=== PATIENT | male | born 1990 | race Caucasian/White ===

== ENCOUNTER 2021-09-03 08:43 | Outpatient (REF) | payer OTHER, SELFPAY ==
[2021-09-03 11:10] LABS: Appearance Urine CLEAR; Color Urine STRAW; Glucose Urine UA NEG (NEG); Leukocyte Esterase Urine NEG (NEG); Nitrite Urine NEG (NEG); Specific Gravity - Urine 1.015 (1.005-1.025); Urine Blood NEG (NEG); Urine Ketones 5 MG/DL (NEG); Urine Protein NEG (NEG-TRACE)
[2021-09-03 12:01] LABS: Alanine Aminotransferase 24 U/L (0-40); Albumin Level 4.3 g/dL (3.5-5.0); Alkaline Phosphatase 46 U/L (39-117); Anion Gap 11 (12-20); Aspartate Amino Transferase 23 U/L (5-37); Bilirubin Total 0.6 mg/dL (0.0-1.0); Blood Urea Nitrogen 12 mg/dL (9-16); Calcium 9.5 mg/dL (8.4-10.2); Carbon Dioxide 29 mmol/L (22-29); Chloride 105 mmol/L (96-108); Cholesterol 233 mg/dL; Estimated Glomerular Filt Rate > 60; Glucose Fasting 98 mg/dL (60-99); HDL Cholesterol 70 mg/dL; LDL Cholesterol Calculated 148 mg/dl; Potassium 4.6 mmol/L (3.3-5.1); Sodium 140 mmol/L (135-145); TSH reflex Free T4 3.06 uIU/mL (0.32-4.0); Total Protein 7.4 g/dL (6.5-8.0); Triglycerides 75 mg/dL
== END 2021-09-03 08:44 | disposition home or self-care (01) ==
LOC: HO.HMGCLDS 08:43
PROVIDERS: PCP Nurse Practitioner Family; Visit Provider Nurse Practitioner Family
DX: Z00.00 Encounter for general adult medical examination without abnormal findings (principal)
CPT/HCPCS: 36415; 80053; 80061; 81003; 84443

== ENCOUNTER → 2021-12-02 13:48 | Outpatient (BNVA) | payer OTHER, SELFPAY | PROVIDERS: PCP Nurse Practitioner Family; Visit Provider Nurse Practitioner Family | DX: Z13.89 Encounter for screening for other disorder (principal) ==

== ENCOUNTER 2023-07-28 15:49 | Outpatient (AMB) | payer OTHER, SELFPAY ==
[2023-07-28 16:12] VITALS: BP 126/70; PULSE 78; TEMP 36.9; O2SAT 98; BMI 37.4
--- NOTE | 2023-07-28 16:12 | AM.OFFWIN_ITS ---
Intake Vital Signs 07/28/23 16:12 Height 6 ft 3 in Weight 299 lb BMI 37.4 BP 126/70 Blood Pressure Location Rt brachial Position Sitting Pulse 78 Pulse Source Pulse Oximeter Temp 98.5 F Temp Source Temporal Artery Scan Pulse Oximetry (%) 98 Oxygen Delivery Method Room Air Intake Visit Reasons: EP RT hand tingling nerve pain Intake Note: pt is here today for hand tingling nerve pain started 2 weeks ago Patient Tobacco Use Status: Former Tobacco user Allergies No Known Allergies [No Known Allergies*] Allergy (Verified 07/28/23 16:13) Do you need a note to return to daycare/school/sports/work: No HPI HPI Comments History of Present Illness Details This is a 33-year-old male with a 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 Patient denies any injury or trauma preceding the onset of his symptoms and he denies having any neck pain or neck trauma. Patient has taken ibuprofen with minimal relief of his discomfort. Patient is requesting a referral to a hand specialist. [facility] Surgical History Hx of appendectomy Social History Housing: House Alcohol intake: current Alcohol intake frequency: holidays/special occasions only Patient Tobacco Use Status: Former Tobacco user e-Cigarette/Vaping Use: Never Used Second Hand Smoke Exposure: No Current occupational status: employed Cognitive needs: No Hearing needs: No Vision needs: No Review of Systems Const All systems reviewed & are unremarkable except as noted in HPI and below Denies chills and Denies fever(s) Musc Reports no additional complaints and Reports other (Right thumb pain; numbness/tingling) Skin/Breast Reports system reviewed and no additional complaints, except as documented Psych Reports no additional complaints Physical Exam Vital Signs: Last Vital Signs Temp 98.5 F 07/28/23 16:12 Pulse 78 07/28/23 16:12 BP 126/70 07/28/23 16:12 Pulse Ox 98 07/28/23 16:12 Oxygen Delivery Method Room Air 07/28/23 16:12 BMI result Body Mass Index 37.4 Const General: cooperative, healthy appearing, comfortable, no acute distress and well developed Nutritional Appearance: average body habitus Orientation/consciousness: patient oriented x3 Limitations: no limitations Neck Neck: Yes full ROM, Yes no meningeal signs, No anterior neck swelling and Yes other (no paraspinous tenderness to palpation of the cervical spine musculature) Lymphatic: no lymphadenopathy noted Skin General skin exam: no rashes or lesions noted (no cutaneous abnormalities right hand, right thumb) Neuro Other: sensation intact right thumb as compared to left thumb; no pain to palpation, full ROM right thumb intact General: patient oriented x3, Normal light touch and pain sensation (right thumb) and no meningeal signs Cognition (Neuro): normal cognition Extrem Right upper extremity: Extremity exam: right hand Details: normal to inspection, normal capillary refill, neuromotor exam normal, neurosensory exam abnormal and tendon exam normal; no tenderness, ROM of fingers normal, no unusual warmth and no swelling Psych Appearance: grossly normal Mental Status: mental status grossly normal Insight: Good insight present (Psych) Judgement: Good judgement present (Psych) Assessment & Plan Assessment & Plan (1) Neuropathy: Comment: R. thumb; other digits of right hand not affected. Code(s): G62.9 - Polyneuropathy, unspecified Plan: Referral placed to hand specialist at [facility]. Coding Level of Care Code Est Pt Level 3 (79497) Diagnoses Neuropathy G62.9 Time Spent (min) 25
== END 2023-07-28 17:03 | disposition home or self-care (01) ==
PROVIDERS: PCP Nurse Practitioner Family; Visit Provider Physician Assistant
DX: G62.9 Polyneuropathy, unspecified (principal)
CPT/HCPCS: 99213

== ENCOUNTER 2023-08-05 08:36 | Outpatient (AMB) | payer OTHER, SELFPAY ==
--- NOTE | 2023-08-05 08:38 | MHC.OFFVIS ---
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 States its started about 1 month ago. States currently its comes and goes. States he is wearing a brace at night and helps. NO EMG done. 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 He states he has intermittent pain, numbness and tingling in his right hand. He also experiences difficulty with gripping and twisting motions and reports having pain with holding water bottles. He denies any crunching or clicking in his wrist. He uses a brace at night which provides him relief. He has tried ibuprofen in the past but discontinued taking them. 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 Cognitive needs: No Hearing needs: No Vision needs: No Review of Systems Const All systems reviewed & are unremarkable except as noted in HPI and below Physical Exam Vital Signs: BMI result Body Mass Index 37.4 Const General: cooperative, healthy appearing, comfortable, no acute distress, well developed and alert Orientation/consciousness: patient oriented x3 HEENT Head: Yes normal to inspection, Yes normocephalic and Yes atraumatic Eyes General: appearance normal, both eyes and all related structures Resp Effort & Inspection: normal respiratory effort and able to speak in complete sentences Cardio Rate: regular rate Peripheral pulses: Peripheral pulses 2+ throughout GI Palpation (GI): Soft to palpation Skin Lesions: no lesions Rashes: no rashes Neuro General: patient oriented x3 Extrem Other: Right wrist: Without deformity. No swelling. Mild tenderness over the radial styloid. Negative Elliott?s. Negative Tinel?s. No pain with CMC grind. He is able to make a full fist and fully extend all digits. NVI. Assessment & Plan Assessment & Plan (1) Neuropathy: Comment: R. thumb; other digits of right hand not affected. Code(s): G62.9 - Polyneuropathy, unspecified (2) De Quervain's tenosynovitis, right: Code(s): M65.4 - Radial styloid tenosynovitis [de Quervain] Plan He was fit for a Velcro thumb spica brace which he will wear at night and with strenuous activities. An EMG nerve conduction study has been ordered to evaluate the etiology of his nerve symptoms. He was also given a prescription of naproxen 500 mg which he will take twice a day for the next 2 weeks. he will see me back once the EMG study is complete. Orders: Orders NE electromyogram (EMG) Today R20.0 - Anesthesia of skin, R20.2 - Paresthesia of skin NE nerve conduction velocity Today R20.0 - Anesthesia of skin, R20.2 - Paresthesia of skin Medications: New naproxen 500 mg PO BID 60 tabs 3RF 30 days S93.409A - Sprain of unspecified ligament of unspecified ankle, initial encounter Patient Instructions: Scribed for Dameon Noriega PA-C, by Ajit Wilcox behavioral medical director, on 08/05/2023 at 8:30 AM EST. IDameon PA-C, have personally reviewed and agree with the information entered by the scribe. Coding Level of Care Code New Pt Level 3 (63952) Diagnoses Neuropathy G62.9 De Quervain's tenosynovitis, right M65.4
[2023-08-05 08:41] VITALS: BMI 37.4
== END 2023-08-05 08:59 | disposition home or self-care (01) ==
PROVIDERS: PCP Nurse Practitioner Family; Visit Provider Physician Assistant
DX: M65.4 Radial styloid tenosynovitis [de Quervain] (principal)
CPT/HCPCS: 99203

== ENCOUNTER → 2023-08-05 08:36 | Outpatient (BNVA) | payer OTHER, SELFPAY | PROVIDERS: PCP Nurse Practitioner Family; Visit Provider Physician Assistant ==

== ENCOUNTER 2023-09-08 07:30 | Outpatient (AMB) | payer OTHER, SELFPAY ==
--- NOTE | 2023-09-08 07:39 | A.OFFPC_ITS ---
Vital Signs 09/08/23 07:41 Height 6 ft 3 in Weight 299 lb BMI 37.4 BP 114/70 Blood Pressure Location Rt brachial Position Sitting Pulse 65 Pulse Source Pulse Oximeter Pulse Oximetry (%) 98 Oxygen Delivery Method Room Air Intake Visit Reasons: Annual PE Intake Note: Patient here for physical exam. Has not had labs done. Allergies No Known Allergies [No Known Allergies*] Allergy (Verified 09/08/23 07:42) Medication List - Last Reconciled 09/08/23 by RAVINDER Truong calcium polycarbophil (Fiber (calcium polycarbophil)) 1,250 mg PO DAILY cholecalciferol (vitamin D3) 50 mcg PO DAILY magnesium oxide 400 mg PO DAILY melatonin mg PO methylphenidate HCl 10 mg PO BID multivitamin 1 tab PO DAILY naproxen 500 mg PO BID 30 days Tobacco use date assessed: 09/08/23 Dental Screening Dental Screen Date: 09/08/23 Did you have a dental visit in the last 12 months?: Yes Did you have a dental problem in the last 6 months where you did not have access to dental care?: No Was dental information given to patient?: Patient has dentist HPI Annual PE HPI Details Pt is here for a PE. Will order labs. 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 1. Little interest or pleasure in doing things: not at all 2. Feeling down, depressed, or hopeless: not at all 3. Trouble falling or staying asleep, or sleeping too much: more than half the days 4. Feeling tired or having little energy: not at all 5. Poor appetite or overeating: not at all 6. Feeling bad about yourself - or that you are a failure or have let yourself or your family down: not at all 7. Trouble concentrating on things, such as reading the newspaper or watching television: not at all 8. Moving or speaking so slowly that other people could have noticed. Or the opposite - being so fidgety or restless that you have been moving around a lot more than usual: not at all 9. Thoughts that you would be better off or of hurting yourself in some way: not at all Total score: 2 Depression Screening Interpretation: Negative Depression Screening Done: Yes 30336 - PHQ-9 Billing: Yes Source: Developed by Drs. John Hobbs, Anamika Ravi, Raymundo Miramontes and colleagues, with an educational mohit from [employer]. Thrive Questionnaire Date Thrive assessed: 09/08/23 I am a: Patient What is your living situation today?: I have a steady place to live Within the past 12 months, did the food you bought not last and you didn't have the money to get more?: Never true Within the past 12 months, did you worry whether your food would run out before you got money to buy more?: Never true Do you have trouble paying for medicines?: No Do you have trouble getting transportation to medical appointments?: No Do you have trouble paying your heating and electricity bill?: No Do you have trouble taking care of your child, family member or friend?: No Do you have trouble with day-to-day activities such as bathing, preparing meals, shopping, managing finances, etc.?: No Are you currently unemployed and looking for a job?: No Are you interested in more education?: No AUDIT C Alcohol Use Questionnaire (AUDIT-C) 1. How often do you have a drink containing alcohol?: 2-4 times a month 2. How many drinks containing alcohol do you have on a typical day when you are drinking?: 1 or 2 3. How often do you have six or more drinks on one occasion?: Never Total Score: 2 Score Reviewed/Action Taken: No BETTY-7 AMB Questionnaire BETTY-7 Date BETTY - 7 assessed: 09/08/23 Feeling nervous, anxious, or on edge: 0 = Not at all Not being able to stop or control worryin = Not at all Worrying too much about different things: 0 = Not at all Trouble relaxin = Not at all Being so restless that it is hard to sit still: 0 = Not at all Becoming easily annoyed or irritable: 0 = Not at all Feeling afraid as if something awful might happen: 0 = Not at all Total BETTY-7 score (0-4 normal; 5-9 mild; 10-14 moderate; 15-21 severe): 0 Source: Developed by Drs. John Hobbs, Anamiak Ravi, Raymundo Miramontes and colleagues, with an educational mohit from [employer]. BETTY-7 Assessment Billing BETTY-7 Assessment Tool: BETTY-7 Assessment 09229 Review of Systems Const Denies chills and Denies fever(s) Eyes Denies blurry vision ENT Denies vertigo, Denies dizziness and Denies sore throat Card Denies chest pain at rest, Denies chest pain with activity, Denies diaphoresis, Denies dyspnea and Denies dyspnea on exertion Resp Denies cough, Denies dyspnea, Denies dyspnea on exertion and Denies wheezing GI Denies abdominal pain, Denies melena, Denies hematochezia, Denies constipation, Denies diarrhea and Denies loose stools Denies hematuria Musc Denies numbness and Denies tingling Skin/Breast Denies lesions Neuro Denies vertigo, Denies dizziness, Denies numbness and Denies tingling Psych Denies anxiety, Denies depression, Denies homicidal ideation, Denies suicidal ideation and Denies other (substance abuse) Aller/Immun Denies wheezing Physical exam (Primary Care) Vital Signs: Last Vital Signs Pulse 65 09/08/23 07:41 BP 114/70 09/08/23 07:41 Pulse Ox 98 09/08/23 07:41 Oxygen Delivery Method Room Air 09/08/23 07:41 BMI result Body Mass Index 37.4 Tobacco/Smoking Status: Tobacco use Status Tobacco use date assessed 09/08/23 09/08/23 07:45 Patient Tobacco Use Status Former Tobacco user 09/08/23 07:41 e-Cigarette/Vaping Use Never Used 09/08/23 07:41 PHQ-9: PHQ-9 Score PHQ-9: Total score 2 09/08/23 07:50 Depression Screening Interpretation: Negative Thrive Assessment: Date of Thrive Assessment Date Thrive assessed 09/08/23 09/08/23 07:48 Const General: cooperative Nutritional Appearance: obese Orientation/consciousness: patient oriented x3 HENMT Head: Yes normal to inspection, Yes normocephalic and Yes atraumatic Ears: TM's normal bilaterally Eyes General: appearance normal, both eyes and all related structures Alignment and Position: alignment normal and position normal Neck Neck: Yes normal visual inspection and Yes no lymphadenopathy Thyroid: Thyroid normal Resp Effort & Inspection: normal respiratory effort Auscultation: clear to auscultation bilaterally Cardio Rate: regular rate Rhythm: regular rhythm Heart sounds: S1 normal heart sound present, S2 normal heart sound present and no murmurs GI Palpation (GI): Soft to palpation and nontender Auscultation: normal bowel sounds Male General Exam: Yes normal external exam Penis: normal penis Scrotum: scrotum normal, testes descended bilaterally and no inguinal hernias Testes: no testicular mass Skin Rashes: no rashes Neuro General: patient oriented x3, moves all extremities, no focal motor deficits and deep tendon reflexes 2+ bilaterally Romberg Test: Negative Psych Appearance: grossly normal Mental Status: mental status grossly normal Speech and movement: Normal speech and movement present Affect: normal affect Attitude: cooperative Thought process: Normal thought process present Thought content: Normal thought content present Insight: Good insight present (Psych) Judgement: Good judgement present (Psych) Assessment and Plan Assessment & Plan (1) Physical exam: Code(s): Z00.00 - Encounter for general adult medical examination without abnormal findings Plan: Labs ordered Plan The patient agreed to the use of a clinical medical assistant for this encounter. Scribed for RAVINDER Tinajero by Krystle Murrell clinical medical assistant, on 09/08/2023 at 07:50 EST. Orders: Orders Complete Blood Count Auto Diff Today Z00.00 - Encounter for general adult medical examination without abnormal findings Comprehensive [place]. Panel Fast Today Z00.00 - Encounter for general adult medical examination without abnormal findings TSH reflex Free T4 Today Z00.00 - Encounter for general adult medical examination without abnormal findings UA CC w/rflx Micro + Cult Today Z00.00 - Encounter for general adult medical examination without abnormal findings Lipid Panel Today Z00.00 - Encounter for general adult medical examination without abnormal findings Coding Level of Care Code Est Pt Prev Care 18-39y(07630) Diagnoses Physical exam Z00.00 Additional Codes BETTY-7 Assessment Billing - BETTY-7 Assessment Tool: BETTY-7 Assessment 64665 ([id number])
[2023-09-08 07:41] VITALS: BP 114/70; PULSE 65; O2SAT 98; BMI 37.4
== END 2023-09-08 08:01 | disposition home or self-care (01) ==
PROVIDERS: Visit Provider Nurse Practitioner Family
DX: Z00.00 Encounter for general adult medical examination without abnormal findings (principal)
CPT/HCPCS: 99395

== ENCOUNTER 2023-09-08 08:04 | Outpatient (REF) | payer OTHER, SELFPAY ==
[2023-09-08 11:34] LABS: MANUAL DIFF FLAG NO
[2023-09-08 11:50] LABS: Basophils Percent Auto 0.5 % (0-2); Eosinophils Absolute Auto 0.1 X10*3/uL (0.0-0.4); Eosinophils Percent Auto 1.1 % (0-4); Hematocrit 41.8 % (42.0-52.0); Hemoglobin 14.2 g/dl (14.0-18.0); Imm Gran Abs Auto 0.01 X10*3/uL (0.00-0.03); Imm Gran Pct Auto 0.2 % (0.0-0.4); Lymphocytes Absolute Auto 1.5 X10*3/uL (1.2-4.9); Lymphocytes Percent Auto 33.3 % (20-40); Mean Corpuscular Volume 88.2 fL (80.0-98.0); Mean Platelet Volume 10.5 fL (9.4-12.4); Monocytes Absolute Auto 0.4 X10*3/uL (0.1-1.2); Monocytes Percent Auto 9.6 % (2-11); Neutrophils Absolute Auto 2.4 x10*3/uL (2.0-8.3); Neutrophils Percent Auto 55.3 % (45-73); Platelet Count 204 X10*3/uL (160-400); Red Blood Count 4.74 X10*6/uL (4.60-5.80); Red Cell Distribution Width 13.3 % (11.0-16.0); White Blood Count 4.4 X10*3/uL (4.8-10.8)
[2023-09-08 12:07] LABS: Appearance Urine Clear; Color Urine Yellow; Glucose Urine UA Negative (Negative); Leukocyte Esterase Urine Negative (Negative); Nitrite Urine Negative (Negative); Specific Gravity - Urine 1.015 (1.005-1.025); Urine Blood Negative (Negative); Urine Ketones Negative (Negative); Urine Protein Negative (Neg-Trace)
[2023-09-08 12:21] LABS: Alanine Aminotransferase 23 U/L (0-40); Albumin Level 4.4 g/dL (3.5-5.0); Alkaline Phosphatase 44 U/L (39-117); Anion Gap 11 (12-20); Aspartate Amino Transferase 22 U/L (5-37); Bilirubin Total 0.4 mg/dL (0.0-1.0); Blood Urea Nitrogen 13 mg/dL (9-16); Calcium 9.7 mg/dL (8.4-10.2); Carbon Dioxide 31 mmol/L (22-29); Chloride 102 mmol/L (96-108); Cholesterol 224 mg/dL (<200); Estimated Glomerular Filt Rate > 60; Glucose Fasting 92 mg/dL (60-99); HDL Cholesterol 71 mg/dL (>40); LDL Cholesterol Calculated 141 mg/dL (<100); Potassium 4.1 mmol/L (3.3-5.1); Sodium 140 mmol/L (135-145); TSH reflex Free T4 2.43 uIU/mL (0.32-4.0); Total Protein 7.6 g/dL (6.5-8.0); Triglycerides 63 mg/dL (<150)
== END 2023-09-08 08:05 | disposition home or self-care (01) ==
LOC: HO.HMGCLDS 08:04
PROVIDERS: PCP Nurse Practitioner Family; Visit Provider Nurse Practitioner Family
DX: Z00.00 Encounter for general adult medical examination without abnormal findings (principal); Z20.2 Contact with and (suspected) exposure to infections with a predominantly sexual mode of transmission
CPT/HCPCS: 36415; 80053; 80061; 81003; 84443; 85025

== ENCOUNTER 2024-10-01 10:50 | Outpatient (REF) | payer OTHER, SELFPAY ==
[2024-10-01 13:22] LABS: Appearance Urine Clear; Color Urine Yellow; Glucose Urine UA Negative (Negative); Leukocyte Esterase Urine Negative (Negative); Nitrite Urine Negative (Negative); PH 6.5 (5.0-9.0); Specific Gravity - Urine <= 1.005 (1.005-1.025); Urine Blood Negative (Negative); Urine Ketones Negative (Negative); Urine Protein Negative (Neg-Trace)
[2024-10-01 13:25] LABS: MANUAL DIFF FLAG NO
[2024-10-01 13:37] LABS: Basophils Percent Auto 0.4 % (0-2); Eosinophils Percent Auto 0.8 % (0-4); Hematocrit 42.6 % (42.0-52.0); Hemoglobin 14.5 g/dl (14.0-18.0); Imm Gran Abs Auto 0.01 X10*3/uL (0.00-0.03); Imm Gran Pct Auto 0.2 % (0.0-0.4); Lymphocytes Absolute Auto 1.3 X10*3/uL (1.2-4.9); Mean Corpuscular Hemoglobin 29.7 pg (27.0-33.0); Mean Corpuscular Volume 87.1 fL (80.0-98.0); Mean Platelet Volume 10.1 fL (9.4-12.4); Monocytes Absolute Auto 0.4 X10*3/uL (0.1-1.2); Monocytes Percent Auto 8.4 % (2-11); Neutrophils Absolute Auto 3.1 x10*3/uL (2.0-8.3); Neutrophils Percent Auto 63.2 % (45-73); Platelet Count 214 X10*3/uL (160-400); Red Blood Count 4.89 X10*6/uL (4.60-5.80); Red Cell Distribution Width 13.2 % (11.0-16.0); White Blood Count 4.9 X10*3/uL (4.8-10.8)
[2024-10-01 14:49] LABS: TSH reflex Free T4 1.79 uIU/mL (0.32-4.0)
[2024-10-01 14:57] LABS: Alanine Aminotransferase 28 U/L (0-40); Albumin Level 4.5 g/dL (3.5-5.0); Anion Gap 12 (12-20); Aspartate Amino Transferase 27 U/L (5-37); Bilirubin Total 0.5 mg/dL (0.0-1.0); Blood Urea Nitrogen 10 mg/dL (9-16); Calcium 9.8 mg/dL (8.4-10.2); Carbon Dioxide 28 mmol/L (22-29); Chloride 102 mmol/L (96-108); Cholesterol 209 mg/dL (<200); Estimated Glomerular Filt Rate > 60; Glucose Fasting 99 mg/dL (60-99); HDL Cholesterol 55 mg/dL (>40); LDL Cholesterol Calculated 142 mg/dL (<100); Potassium 4.4 mmol/L (3.3-5.1); Sodium 138 mmol/L (135-145); Total Protein 8.2 g/dL (6.5-8.0); Triglycerides 61 mg/dL (<150)
[2024-10-01 15:35] LABS: Alkaline Phosphatase 49 U/L (39-117)
== END 2024-10-01 10:51 | disposition home or self-care (01) ==
LOC: HO.HMGCLDS 10:50
PROVIDERS: PCP Nurse Practitioner Family; Visit Provider Nurse Practitioner Family
DX: Z00.00 Encounter for general adult medical examination without abnormal findings (principal); R00.2 Palpitations
CPT/HCPCS: 36415; 80053; 80061; 81003; 84443; 85025; 96127

== ENCOUNTER 2024-10-01 10:50 | Outpatient (AMB) | payer OTHER, SELFPAY ==
[2024-10-01 10:52] VITALS: BP 120/78; PULSE 70; RESP 16; TEMP 36.6; O2SAT 98; BMI 37.9
--- NOTE | 2024-10-01 10:52 | MHC.PC.OV ---
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 Required: No Accompanied by: Self / Same As Patient Allergies No Known Allergies [No Known Allergies*] Allergy (Verified 10/01/24 11:45) Medication List - Last Reconciled 10/01/24 by YANI Truong calcium polycarbophil (Fiber (calcium polycarbophil)) 1,250 mg PO DAILY cholecalciferol (vitamin D3) 50 mcg PO DAILY magnesium oxide 400 mg PO DAILY melatonin mg PO methylphenidate HCl 10 mg PO BID multivitamin 1 tab PO DAILY Tobacco use date assessed: 10/01/24 Dental Screening Dental Screen Date: 10/01/24 Did you have a dental visit in the last 12 months?: Yes Did you have a dental problem in the last 6 months where you did not have access to dental care?: No Was dental information given to patient?: Patient has dentist HPI PE HPI Details History of Present Illness The patient is a 34-year-old male presenting with palpitations. He reports experiencing intermittent palpitations, having noted this sensation for some time. Recently, while in [place], he sought medical attention at a walk-in clinic where he was assessed and diagnosed with premature atrial contractions (PACs) and premature ventricular contractions (PVCs). The frequency of these palpitations appears to be intermittent, occurring sporadically without a specific pattern. He has no associated symptoms such as chest pain, shortness of breath, or abdominal pain. There are no exacerbating factors identified, and he has not reported any relief measures taken apart from seeking medical evaluation during the episode in [place]. The patient denies any psychological symptoms such as anxiety or depression, which could be potential triggers for palpitations. He plans to undergo an electrocardiogram (EKG) today to further assess his condition. Health Maintenance Social History Review of Systems - Cardiovascular: Reports palpitations. Denies chest pain and shortness of breath. - Gastrointestinal: Denies abdominal pain, blood in stool, constipation, and diarrhea. - Psychiatric: Denies anxiety and depression. Denies homicidal and suicidal ideation. Physical Exam General: Cooperative, healthy appearing, comfortable, no acute distress and well developed Orientation: Patient oriented x3 Limitations: No limitations Head: Normal to inspection Ears: Hearing grossly normal bilaterally Nose: Normal external nose present Face and sinus: Normal facial exam Eyes: Appearance normal, both eyes and all related structures Neck: Normal visual inspection and Yes full ROM Respiratory: Normal respiratory effort and able to speak in complete sentences. Clear to auscultation bilaterally Cardiovascular: Regular rate and rhythm. Normal S1 and S2. GI: Normal to inspection. Soft to palpation and nontender Skin: No rashes or lesions noted Neuro: Patient oriented x3 Extremities: Normal to inspection Results Plan - Proceed with obtaining an electrocardiogram EKG) to evaluate current cardiac rhythm and further investigate the cause of palpitations. - Monitor and document any further episodes of PACs and PVCs, assessing for patterns or triggers. Patient was informed and verbally consented to the use of an ambient scribe for clinic note documentation during this visit. Discussion Notes During our conversation, we addressed the primary concern of palpitations, with previous episodes associated with premature atrial and ventricular contractions. I explained the plan to conduct an EKG to assess the patient's current heart rhythm. We discussed the nature of PACs and PVCs, and I reassured the patient about the investigation process. Since the symptoms are intermittent and have not been associated with other significant events or stressors, I focused on the importance of cardiac monitoring and observation. I emphasized the need to document any future episodes, their frequency, and any possible triggers, to facilitate further assessment and management. Patient Instructions - Undergo the scheduled EKG today. - Keep a record of any palpitations, noting time of occurrence, any potential triggers, and symptoms. - Seek immediate medical attention if experiencing new symptoms such as chest pain or shortness of breath, or if palpitations become more frequent or severe. 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 1. Little interest or pleasure in doing things: not at all 2. Feeling down, depressed, or hopeless: not at all 3. Trouble falling or staying asleep, or sleeping too much: not at all 4. Feeling tired or having little energy: not at all 5. Poor appetite or overeating: not at all 6. Feeling bad about yourself - or that you are a failure or have let yourself or your family down: not at all 7. Trouble concentrating on things, such as reading the newspaper or watching television: not at all 8. Moving or speaking so slowly that other people could have noticed. Or the opposite - being so fidgety or restless that you have been moving around a lot more than usual: not at all 9. Thoughts that you would be better off or of hurting yourself in some way: not at all Total score: 0 Depression Screening Interpretation: Negative Depression Screening Done: Yes 43954 - PHQ-9 Billing: Yes Source: Developed by Drs. John Hobbs, Anamika Ravi, Raymundo Miramontes and colleagues, with an educational mohit from [employer] Thrive Questionnaire Date Thrive assessed: 10/01/24 I am a: Patient What is your living situation today?: I have a steady place to live Within the past 12 months, did the food you bought not last and you didn't have the money to get more?: Never true Within the past 12 months, did you worry whether your food would run out before you got money to buy more?: Never true Do you have trouble paying for medicines?: I choose not to answer this question Do you have trouble getting transportation to medical appointments?: No Do you have trouble paying your heating and electricity bill?: I choose not to answer this question Do you have trouble taking care of your child, family member or friend?: No Do you have trouble with day-to-day activities such as bathing, preparing meals, shopping, managing finances, etc.?: No Are you currently unemployed and looking for a job?: I choose not to answer this question Are you interested in more education?: I choose not to answer this question Please select the resources that you would like help with: None Currently or been in a relationship where the following occur: No concerns reported THRIVE Score: 0 AUDIT C Alcohol Use Questionnaire (AUDIT-C) 1. How often do you have a drink containing alcohol?: 2-4 times a month 2. How many drinks containing alcohol do you have on a typical day when you are drinking?: 3 or 4 3. How often do you have six or more drinks on one occasion?: Less than monthly Total Score: 4 Score Reviewed/Action Taken: Yes BETTY-7 AMB Questionnaire BETTY-7 Date BETTY - 7 assessed: 10/01/24 Feeling nervous, anxious, or on edge: 0 = Not at all Not being able to stop or control worryin = Not at all Worrying too much about different things: 0 = Not at all Trouble relaxin = Not at all Being so restless that it is hard to sit still: 0 = Not at all Becoming easily annoyed or irritable: 0 = Not at all Feeling afraid as if something awful might happen: 0 = Not at all Total BETTY-7 score (0-4 normal; 5-9 mild; 10-14 moderate; 15-21 severe): 0 Source: Developed by Drs. John Hobbs, Anamika Ravi, Raymundo Miramontes and colleagues, with an educational mohit from [employer] BETTY-7 Assessment Billing BETTY-7 Assessment Tool: BETTY-7 Assessment 02529 Physical exam (Primary Care) Vital Signs: Last Vital Signs Temp 97.9 F 10/01/24 10:52 Pulse 70 10/01/24 10:52 Resp 16 10/01/24 10:52 BP 120/78 10/01/24 10:52 Pulse Ox 98 10/01/24 10:52 Oxygen Delivery Method Room Air 10/01/24 10:52 BMI result Body Mass Index 37.9 Tobacco/Smoking Status: Tobacco use Status Tobacco use date assessed 10/01/24 10/01/24 10:53 Patient Tobacco Use Status Former Tobacco user 10/01/24 10:53 e-Cigarette/Vaping Use Never Used 10/01/24 10:53 PHQ-9: PHQ-9 Score PHQ-9: Total score 0 10/01/24 10:59 Depression Screening Interpretation: Negative Thrive Assessment: Date of Thrive Assessment Date Thrive assessed 10/01/24 10/01/24 10:53 Currently or been in a relationship where the following occur: No concerns reported Coding Level of Care Code Est Pt Prev Care 18-39y(26314) Diagnoses Physical exam Z00.00 Palpitations R00.2 Additional Codes BETTY-7 Assessment Billing - BETTY-7 Assessment Tool: BETTY-7 Assessment 99098 ([id number]) PHQ-9 - 87600 - PHQ-9 Billing: Yes ([id number]) Assessment & Plan Assessment & Plan (1) Physical exam: Code(s): Z00.00 - Encounter for general adult medical examination without abnormal findings Category: Medical (2) Palpitations: Code(s): R00.2 - Palpitations Category: Medical Plan . Orders: Orders Comprehensive [place]. Panel Fast Today Z00.00 - Encounter for general adult medical examination without abnormal findings UA CC w/rflx Micro + Cult Today Z00.00 - Encounter for general adult medical examination without abnormal findings AMB EKG-In Office Today R00.2 - Palpitations ECG 3 day holter monitor Today R00.2 - Palpitations Complete Blood Count Auto Diff Today Z00.00 - Encounter for general adult medical examination without abnormal findings TSH reflex Free T4 Today Z00.00 - Encounter for general adult medical examination without abnormal findings Lipid Panel Today Z00.00 - Encounter for general adult medical examination without abnormal findings
== END 2024-10-01 11:48 | disposition home or self-care (01) ==
PROVIDERS: PCP Nurse Practitioner Family; Visit Provider Nurse Practitioner Family
DX: Z00.00 Encounter for general adult medical examination without abnormal findings (principal); R00.2 Palpitations

== ENCOUNTER → 2024-10-16 07:31 | Outpatient (REF) | payer OTHER, SELFPAY | LOC: HO.CARD 07:31 | PROVIDERS: PCP Nurse Practitioner Family; Visit Provider Nurse Practitioner Family | DX: R00.2 Palpitations (principal) | CPT/HCPCS: 93242 ==

== ENCOUNTER → 2024-10-16 07:34 | Outpatient (BNV) | payer OTHER, SELFPAY | PROVIDERS: PCP Nurse Practitioner Family; Visit Provider Internal Medicine Cardiovascular Disease | DX: I49.1 Atrial premature depolarization (principal) | CPT/HCPCS: 93244 ==

== ENCOUNTER 2025-03-18 14:57 | Outpatient (AMB) | payer OTHER, SELFPAY ==
[2025-03-18 15:00] VITALS: BP 122/80; PULSE 84; BMI 37.5
--- NOTE | 2025-03-18 15:00 | A.OFFVIS_ITS ---
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 Few months back, he was not [place] when apparently he went to walk-in clinic with palpitations and was told to have PACs/PVCs. Since then, he has had intermittent palpitations at different times. Some days more than the others. He does not have any previous history of coronary disease or myocardial infarction or cardiomyopathy or in fact any other cardiac issues. Otherwise, unlimited exercise tolerance and he plays several sports with no issues. With regard to weight, he is almost 300 lb at this time but he states he was near 400 lb rather few years back. He has been trying to lose weight and has been able to get into the mid 200s in the past. There is a family history of atrial fibrillation and cardiomyopathy. He is here for further evaluation. [facility] Surgical History Hx of appendectomy Family History (Updated 03/18/25 @ 15:20 by Rob Roldan MD) Mother No problems noted. 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 Cognitive needs: No Hearing needs: No Vision needs: Yes Review of Systems Const Denies weakness ENT Denies dizziness Card Denies chest pain, Denies chest pain with activity, Denies syncope, Denies rapid heart rate, Denies pedal edema, Denies edema, Reports irregular heart rhythm, Denies leg edema, Denies lightheadedness, Reports palpitations, Denies dyspnea, Denies dyspnea on exertion and Denies orthopnea Resp Denies cough, Denies dyspnea and Denies dyspnea on exertion GI Denies hematochezia and Denies change in stool character Musc Denies abnormal gait, Denies muscle cramps, Denies muscle weakness, Denies numbness, Denies radiating pain into limb and Denies tingling Neuro Denies abnormal gait, Denies dizziness, Denies syncope, Denies numbness, Denies tingling and Denies weakness Endo Reports palpitations Physical Exam Vital Signs: Last Vital Signs Pulse 84 03/18/25 15:00 BP 122/80 03/18/25 15:00 BMI result Body Mass Index 37.5 Const General: comfortable and no acute distress Orientation/consciousness: patient oriented x3 HEENT Other: Unremarkable Head: Yes normal to inspection Neck Neck: Yes normal visual inspection Chest Chest palpation & inspection: normal inspection of the chest Resp Auscultation: clear to auscultation bilaterally Cardio Palpation: normal PMI Heart sounds: S1 normal heart sound present, S2 normal heart sound present, no gallops, no murmurs and no rubs GI Palpation (GI): Soft to palpation Back/Spine/Pelvis Other: unremarkable Skin General skin exam: no rashes or lesions noted Neuro General: patient oriented x3 Extrem General: Yes normal to inspection Psych Mental Status: mental status grossly normal Assessment & Plan Assessment & Plan (1) Atrial arrhythmia: Code(s): I49.8 - Other specified cardiac arrhythmias Category: Medical (2) Morbid obesity: Code(s): E66.01 - Morbid (severe) obesity due to excess calories Category: Medical Plan Baseline EKG shows sinus rhythm at 70/Min; no significant ST-T changes; normal RI and corrected QT. Holter monitor shows underlying sinus rhythm with an average rate of 78/Min. Frequent PACs noted with a burden of 2%. Very rare PVCs. Overall, palpitations probably from the PACs. We discussed about this in detail today. Main strategy is losing weight which should him immensely. Cut back on alcohol intake. Echocardiogram to evaluate for any cardiomyopathy. There is no history of sleep apnea and previous study he is from many years ago. May recheck that. Follow-up after the above. Discussion Notes I discussed with the patient the importance of undergoing an echocardiogram to evaluate for cardiomyopathy and assess cardiac function. We also talked about the need for a home sleep study to reassess for sleep apnea, considering the previous inconclusive results and significant weight change. I advised the patient on lifestyle modifications, including reducing alcohol intake and continuing weight loss efforts to decrease the risk of atrial fibrillation. The patient was instructed to follow up with a primary care physician regarding the Factor V Leiden mutation and consider a referral to a vending route driver for further evaluation. Patient was informed and verbally consented to the use of an ambient scribe for clinic note documentation during this visit. Orders: Orders CA echo transthoracic complete Today I49.8 - Other specified cardiac arrhythmias RT home sleep study Today G47.33 - Obstructive sleep apnea (adult) (pediatric), I49.8 - Other specified cardiac arrhythmias Patient Instructions: - Schedule an echocardiogram to check heart function. - Complete a home sleep study to reassess for sleep apnea. - Reduce alcohol intake to lower the risk of heart issues. - Continue efforts to lose weight through exercise and diet. - Follow up with your primary care physician about the Factor V Leiden mutation and consider seeing a vending route driver. Coding Level of Care Code New Pt Level 4 (05854) Complex EM visit Add On G2211 Diagnoses Atrial arrhythmia I49.8 Morbid obesity E66.01
== END 2025-03-18 15:27 | disposition home or self-care (01) ==
LOC: HO.HCS 14:59
PROVIDERS: PCP Nurse Practitioner Family; Visit Provider Internal Medicine
DX: I49.8 Other specified cardiac arrhythmias (principal); E66.01 Morbid (severe) obesity due to excess calories
CPT/HCPCS: 99204; G2211

== ENCOUNTER → 2025-05-22 07:54 | Outpatient (REF) | payer OTHER, SELFPAY ==
--- NOTE | 2025-05-22 07:56 | CA_ITS ---
Transthoracic Echocardiogram Patient (Last, First, Middle): Brian Hitchcock, Gender: M Date of : 1990 Age: 34 Procedure Date: 05/22/2025 Procedure Type: Transthoracic Echocardiogram Location: OP Height: 187.96 cm Weight: 136.08 kg BSA: 2.58 m2 Heart Rate: bpm BP: 124 / 80 mmHg Roller Leveler: Referring MD: Rob Roldan MD Welfare Director: Mike Bernal MD Symptoms: I49.8 - Other specified cardiac arrhythmias Study Quality: Adequate ECG Rhythm: Sinus Conclusions: - 1. Normal LV systolic function with LV EF of 60-65% with mild LVH 2. Normal cardiac valvular Dopplers 3. Upper limits of normal ascending aortic size 4. No gross pericardial effusion Findings Left Ventricle Normal left ventricular size and systolic function. There is mildly increased left ventricular wall thickness. The visually estimated ejection fraction is between 60-65%. Spectral Doppler is indicative of a normal filling pattern. Right Ventricle Normal right ventricular cavity size and systolic function. Atria Both atria are normal in size. There is no evidence of interatrial shunt. Aortic Valve Normal aortic valve structure and function. There is no aortic valve stenosis. There is no aortic valve regurgitation. Mitral Valve Normal mitral valve structure and function. There is trace mitral valve regurgitation. There is no mitral valve stenosis. Pulmonic Valve The pulmonic valve is likely normal. Tricuspid Valve Normal tricuspid valve structure. There is trace tricuspid valve regurgitation. The right ventricular systolic pressure is normal. The right ventricular systolic pressure is 18 mmHg. Normal right atrial pressure. There is no evidence of pulmonary hypertension. Great Vessels All visible segments of the aorta are normal in size. The pulmonary artery was not well visualized. Venous The inferior vena cava is normal in size and collapses greater than 50% with inspiration. Pericardium/Pleural There is no evidence of pericardial effusion. Prior Study Comparison No prior study available for comparison. Measurements 2D Linear Measurements IVSd: 1.36 0.6-0.9/0.6-1.0 cm LVIDd: 4.89 3.9-5.3/4.2-5.9 cm LVIDd Index: 1.90 2.4-3.2/2.2-3.1 cm/m2 LVIDs: 3.21 2.0-3.6 cm LVPWd: 1.35 0.7-1.1 cm Ao Root: 3.60 2.1-3.5 cm LA Diam: 4.20 2.7-3.8/3.0-4.0 cm LAIDs Index: 1.63 1.5-2.3 cm/m2 LV Mass: 334.93 67-162/88-224 g LV Mass Index: 129.82 43-95/49-115 g/m2 LVOT Diam: 2.60 3.0+(-)1.3 cm 2D Systolic Function EF 4C: 62.10 >55% EF 2C: 69.00 >55% EF BiP: 65.40 >55% Mitral Valve MV Pk E: 0.76 MV PK A: 0.51 MV Decel Time: 160.00 E/A: 1.50 E'Lateral: 14.60 E'Medial: 8.27 E/E' Med: 9.20 E/E' Lat: 5.20 PHT: 47.00 MVA PHT: 4.68 Decel [place]: 4.76 Aortic Valve AoV Pk Michael: 1.23 AoV Mn Michael: 0.85 AoV VTI: 0.33 AoV Pk Grad: 6.00 Aov Mn Grad: 3.00 [place] Cont.VTI: 4.51 LVOT LVOT Pk Michael: 1.03 LVOT Mn Michael: 0.76 LVOT VTI: 0.28 LVOT Pk Grad: 4.00 LVOT Mn Grad: 3.00 LVOT Diam: 2.60 LVOT Area: 5.31 Diastolic Function MV Pk E: 0.76 MV Pk A: 0.51 E/A: 1.50 E'Medial: 8.27 E/E' Med: 9.20 E' Laterial: 14.60 E/E' Lat: 5.20 Right Ventricle TAPSE (mm): 21.00 TVS' Michael: 10.00 Tricuspid Valve TR Pk Michael: 1.95 TR Pk Grad: 15.00 RA Press: 3.00 RVSP: 18.00 Great Vessels Aorta Ao Root-2D: 3.60 2.0-3.7 cm Ao Asc: 3.60 2.1-3.4 cm Pulmonary Veins Pulm Vein S/D 1.30 Pulmonary Valve PV Pk Michael: 0.77 Peak PV Grad: 2.00 Updated in Other Vendor System with Status of Final Mike Bernal MD electronically signed on 05/22/2025 12:09:53 PM with status of Final
== END ==
LOC: HO.CARD 07:54
PROVIDERS: PCP Nurse Practitioner Family; Visit Provider Internal Medicine
DX: I49.8 Other specified cardiac arrhythmias (principal)
CPT/HCPCS: 93306

== ENCOUNTER → 2025-05-22 07:56 | Outpatient (BNV) | payer OTHER, SELFPAY | PROVIDERS: PCP Nurse Practitioner Family; Visit Provider Internal Medicine Cardiovascular Disease | DX: I51.89 Other ill-defined heart diseases (principal) | CPT/HCPCS: 93306 ==

== ENCOUNTER → 2025-06-26 08:07 | Outpatient (REF) | payer OTHER, SELFPAY | LOC: HO.SL 08:07 | PROVIDERS: PCP Nurse Practitioner Family; Visit Provider Internal Medicine | DX: G47.33 Obstructive sleep apnea (adult) (pediatric) (principal); I49.8 Other specified cardiac arrhythmias | CPT/HCPCS: 95806 ==

== ENCOUNTER → 2025-06-26 08:15 | Outpatient (BNV) | payer OTHER, SELFPAY | PROVIDERS: PCP Nurse Practitioner Family; Visit Provider Psychiatry & Neurology Neurology | DX: R40.0 Somnolence (principal) | CPT/HCPCS: 95806 ==

== ENCOUNTER 2025-07-03 09:40 | Outpatient (AMB) | payer OTHER, SELFPAY ==
[2025-07-03 09:42] VITALS: BP 122/68; PULSE 71; BMI 36.6
--- NOTE | 2025-07-03 09:42 | MHC.OFFVIS ---
Vital Signs 07/03/25 09:42 Height 6 ft 3 in Weight 293 lb 3.437 oz BMI 36.6 BP 122/68 Blood Pressure Location Lt brachial Position Sitting Pulse 71 Pulse Source Pulse Oximeter Intake Visit Reasons: f/up echo sleep study Allergies No Known Allergies (No Known Allergies*) Allergy (Verified 10/01/24 11:45) Medication List - Last Reconciled 07/03/25 by Rob Roldan MD calcium polycarbophil (Fiber (calcium polycarbophil)) 1,250 mg PO DAILY cholecalciferol (vitamin D3) 50 mcg PO DAILY magnesium oxide 400 mg PO DAILY melatonin mg PO methylphenidate HCl 10 mg PO BID multivitamin 1 tab PO DAILY HPI Comments Details: Brian returns for follow-up. Recently seen in consultation regarding palpitations. He was on [place] few months back when he went to a walk-in clinic with palpitations. He was told to have PACs/PVCs. Since then, he has had intermittent palpitations at different times. Otherwise, no previous cardiac history including coronary disease or cardiomyopathy. He is very active with sports and can play various sports with no issues. No exertional symptoms or exertional syncope. With regard to weight, he is almost 300 lb at this time but he states he was near 400 lb rather few years back. He has been trying to lose weight and has been able to get into the mid 200s in the past. There is a family history of atrial fibrillation and cardiomyopathy. Since last seen, he has completed an echocardiogram, Holter monitor and sleep study. [facility], [facility] Surgical History Hx of appendectomy Family History (Updated 03/18/25 @ 15:20 by Rob Roldan MD) Mother No problems noted. 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 Cognitive needs: No Hearing needs: No Vision needs: Yes Review of Systems Const Denies weakness ENT Denies dizziness Card Denies chest pain, Denies chest pain with activity, Denies syncope, Denies rapid heart rate, Denies pedal edema, Denies edema, Denies leg edema, Denies lightheadedness, Denies palpitations, Denies dyspnea, Denies dyspnea on exertion and Denies orthopnea Resp Denies cough, Denies dyspnea and Denies dyspnea on exertion GI Denies hematochezia and Denies change in stool character Musc Denies abnormal gait, Denies muscle cramps, Denies muscle weakness, Denies numbness, Denies radiating pain into limb and Denies tingling Neuro Denies abnormal gait, Denies dizziness, Denies syncope, Denies numbness, Denies tingling and Denies weakness Endo Denies palpitations Physical Exam Vital Signs: Last Vital Signs Pulse 71 07/03/25 09:42 BP 122/68 07/03/25 09:42 BMI result Body Mass Index 36.6 Const General: comfortable and no acute distress Orientation/consciousness: patient oriented x3 HEENT Other: Unremarkable Head: Yes normal to inspection Neck Neck: Yes normal visual inspection Chest Chest palpation & inspection: normal inspection of the chest Resp Auscultation: clear to auscultation bilaterally Cardio Palpation: normal PMI Heart sounds: S1 normal heart sound present, S2 normal heart sound present, no gallops, no murmurs and no rubs GI Palpation (GI): Soft to palpation Back/Spine/Pelvis Other: unremarkable Skin General skin exam: no rashes or lesions noted Neuro General: patient oriented x3 Extrem General: Yes normal to inspection Psych Mental Status: mental status grossly normal Assessment & Plan Assessment & Plan (1) Atrial arrhythmia: Code(s): I49.8 - Other specified cardiac arrhythmias Category: Medical (2) Morbid obesity: Code(s): E66.01 - Morbid (severe) obesity due to excess calories Category: Medical Plan Cardiac studies reviewed. In the echocardiogram, LVEF is 60-65%. Normal diastolic filling. No significant valvular findings. In the Holter monitor, sinus rhythm with PAC burden of 2%; rare PVCs. With regard to sleep study, reported to have a normal apnea-hypopnea index. Overall, palpitations probably from the PACs. We discussed about this in detail today. Main strategy is losing weight. Cut back on alcohol intake. Otherwise, if any recurring palpitations, advised him to contact us. Increased PAC burden does increase possibility of atrial fibrillation in the future. For follow-up, he will contact us as needed. Discussion Notes During the consultation, we discussed the patient's palpitations and the associated premature atrial contractions. I explained that the current frequency and severity of these episodes do not warrant immediate intervention but emphasized the importance of maintaining a healthy lifestyle to prevent potential complications such as atrial fibrillation. Patient was informed and verbally consented to the use of an ambient scribe for clinic note documentation during this visit. Total time spent including review of data, counseling, documentation, coordination of care - 31 beats. Patient Instructions: - Maintain a healthy weight and active lifestyle to reduce cardiovascular risks. - Monitor the frequency and severity of palpitations and report any significant changes. - Continue monitoring sleep patterns and report any significant changes or symptoms of sleep apnea. Coding Level of Care Code Est Pt Level 4 (26037) Complex EM visit Add On G2211 Diagnoses Atrial arrhythmia I49.8 Morbid obesity E66.01
== END 2025-07-03 10:01 | disposition home or self-care (01) ==
PROVIDERS: PCP Nurse Practitioner Family; Visit Provider Internal Medicine
DX: I49.8 Other specified cardiac arrhythmias (principal); E66.01 Morbid (severe) obesity due to excess calories
CPT/HCPCS: 99214; G2211